=== PATIENT | female | born 1980 | race Caucasian/White ===

== ENCOUNTER → 2017-05-20 | Outpatient (CLI) | payer BC ==
--- NOTE | ~2017-05-20 | ECHO ---
Transthoracic Echocardiography Report (TTE) Demographics Patient Name MARGO MADERA Date of Study 05/20/2017 Patient Number [id number] Visit Number [id number] Date of 1980 Room Number Gender Female Number Age 36 year(s) Referring Den Elliott Therapy Coordinator Bijal Dong RVT, Physician UDAY RDMATT Physician Interpreting Domenico Martinez MD Bee Tender Physician Supervising Ordering Juan Calloway MD, MD/MLP Physician Nurse Stress Ice Skating Instructor Conclusions Contractility Score Summary Normal Left Ventricular contractility was noted. Summary The estimated left ventricular ejection fraction is 60%. Normal left ventricle size and function. Diastolic assessment reveals normal relaxation. Mild pulmonic valve regurgitation by color Doppler. Visualized portions of the aortic root and ascending aorta appear normal in size. Procedure Type of Study TTE procedure:2D Echocardiogram. Procedure Date Date: 05/20/2017 Start: 08:50 AM Study Location: Echo Lab Technical Quality: Good visualization Additional Indications:Hypermobility Family Hx of AAA Appropriate Use Criteria: 8 Patient Status: Routine Rhythm: NSR HR: 86 bpm BP: 106/63 mmHg M-Mode/2D Measurements LV Diastolic Dimension: 4.16 cm LV Systolic Dimension: 2.63 cm LV Septum Diastolic: 0.66 cm LV PW Diastolic: 0.81 cm AO Root Dimension: 1.7 cm Cardiac Output: 2.47 l/min AV Cusp Separation: 1.6 cm RV Diastolic Dimension: 1.93 cm LA volume: 29 ml LVOT: 1.4 cm RV Base: 2.85 cm LVOT VTI: 18.7 cm RV Mid: 1.93 cm LV Stroke volume: 28.77 ml TAPSE: 2.42 cm TDI-S': 13.5 cm/s Doppler Measurements AV Peak Velocity: 1.11 m/s MV Peak E-Wave: 0.68 m/s AV Peak Gradient: 4.93 mmHg MV Peak A-Wave: 0.57 m/s AV Mean Gradient: 3 mmHg MV E/A Ratio: 1.18 LVOT Peak Velocity: 1.02 m/s MV P1/2t: 62 msec TR Gradient:13.84 mmHg PV Peak Velocity: 0.83 m/s Estimated RAP:5 mmHg PV Peak Gradient: 2.74 mmHg Estimated RVSP: 19 mmHg Estimated PASP: 18.84 mmHg E' Septal Velocity: 0.11 m/s A' Septal Velocity: 0.09 m/s E' Lateral Velocity: 0.14 m/s A' Lateral Velocity: 0.06 m/s Findings Left Ventricle Normal left ventricle size and function. Diastolic assessment reveals Grade II pseudonormal diastolic function . Right Ventricle Normal right ventricle structure and function. Left Atrium Normal left atrial size. There is no evidence of patent foramen ovale or atrial septal defect by color Doppler. Right Atrium Normal right atrial size. IVC measures 2.02 cm with inspiratory collapse. Mitral Valve Normal mitral valve structure and function. Aortic Valve Normal aortic valve structure and function. Tricuspid Valve Trivial tricuspid regurgitation by color Doppler. Pulmonic Valve Mild pulmonic valve regurgitation by color Doppler. Pericardial Effusion No evidence of pericardial effusion. Miscellaneous Visualized portions of the aortic root and ascending aorta appear normal in size. Pleural Effusion No evidence of pleural effusion. Contractility Score LV regional wall motion:(0-Non visualized 1-Normal 2-Hypokinesis 3-Akinesis 4-Dyskinesis 5-Aneurysm) Signature dtt: Juan Acuña (cardio) dtd: 05/20/17 0850 Physician Self Edit
== END | disposition disaster alternative care site (69) ==
LOC: GCAR 08:42
DX: Z48.812 Encounter for surgical aftercare following surgery on the circulatory system (principal); Z86.79 Personal history of other diseases of the circulatory system; I37.1 Nonrheumatic pulmonary valve insufficiency